=== PATIENT | female | born 1950 | race Caucasian/White ===

== ENCOUNTER 2022-03-04 11:04 | Day surgery (SDC) | payer MEDICARE, BC, SELFPAY ==
[2022-03-04 11:25] VITALS: BP 132/69; PULSE 73; RESP 16; TEMP 36.7; O2SAT 98
[2022-03-04] MEDS: Tropicam./Phenyleph. (1/2.5%) 5 ML BTL OD ×3 (11:36→11:46)
--- NOTE | 2022-03-04 11:42 | ANES.PREOP_ITS ---
General Info Date of Service Date Performed: 03/04/22 Height: 5 ft 1 in Weight: 58 kg Body Mass Index (BMI): 24.1 Surgical Procedure: Operation Date: 03/04/22 12:55 Proposed Procedure Side Surgeon p Cataract Extraction with IOL Implant Right Rc Hayes MD Meds Allergies and Home Medications Allergies Allergy/AdvReac Type Severity Reaction Status Date / Time albuterol [From DuoNeb] AdvReac Severe throat Verified 03/04/22 11:21 irritations severe coughing spells ipratropium [From DuoNeb] AdvReac Severe throat Verified 03/04/22 11:21 irritations severe coughing spells hydromorphone HCl AdvReac Intermediate Itching, Verified 03/04/22 11:21 [From Dilaudid] visual disturbances morphine AdvReac Intermediate Itching, Verified 03/04/22 11:21 visual disturbances Home Medication Medication Instructions Recorded Tums E-X 750 mg PO DAILY 09/18/16 acetaminophen 325 mg tablet 325 mg PO PRN PRN 09/18/16 (Tylenol) amlodipine 10 mg tablet 5 mg PO DAILY 09/18/16 aspirin 81 mg tablet,delayed 81 mg PO DAILY 09/18/16 release (Aspir-) docusate sodium 100 mg capsule 100 mg PO PRN PRN 09/18/16 (Colace) hydrochlorothiazide 25 mg tablet 25 mg PO DAILY 09/18/16 polyethylene glycol 3350 17 gram 17 gm PO PRN PRN 09/18/16 oral powder packet (Purelax) calcium carbonate 300 mg (750 mg) 2 tab PO DAILY 03/01/22 chewable tablet (Tums) diazepam 2 mg tablet 2 mg PO DAILY 03/01/22 melatonin 3 mg tablet 3 mg PO HS PRN 03/01/22 rituximab 10 mg/mL 100 mg IV DIRECTED 03/01/22 concentrate,intravenous (Rituxan) Current Visit Medications: Current Medications Generic Name Dose Route Start Last Admin Trade Name Freq PRN Reason Stop Dose Admin Acetaminophen 1,000 mg 03/04/22 06:00 Acetaminophen 500 Mg Tab PO Q4H PRN PRN Miscellaneous Medication 0 ml 03/04/22 06:00 Prednisolone 1%, Moxifloxacin 0.5%, Nepafenac 0.1% 5ml Btl OD DIRECTED WAYLON Miscellaneous Medication 0 ml 03/04/22 06:00 03/04/22 11:41 Tropicam./Phenyleph. (1/2.5%) 5 Ml Btl OD 1 drp DIRECTED WAYLON Administration Tetracaine HCl 0 ml 03/04/22 06:00 Tetracaine 0.5% 4 Ml Btl OD DIRECTED WAYLON PFSH Active Problems Active Problems: Problem Status Onset Code Nuclear sclerotic cataract of right eye H25.11 Medical History Medical History (Updated 03/03/22 @ 11:46 by Rc Hayes MD) Adjustment disorder with anxious mood Bunion COPD (chronic obstructive pulmonary disease) Costochondritis Dysuria Heart murmur HLD (hyperlipidemia) Hypertensive disorder Insomnia Mantoux: positive Nicotine dependence Osteoporosis Rheumatoid arthritis Senile hyperkeratosis Squamous cell carcinoma Ventral incisional hernia without obstruction or gangrene Surgical History Surgical History (Updated 03/04/22 @ 11:20 by Nacho Stroud) H/O hernia repair History of breast biopsy History of colostomy reversal History of exploratory laparotomy Hx laparoscopic cholecystectomy Hx of appendectomy Hx of colectomy Hx of colostomy Hx of tubal ligation Tobacco Smoking/Tobacco Use Status: Current every day Tobacco Type: cigarettes Alcohol Alcohol Intake: current Alcohol intake frequency: a few times a week Substance Use Substance use: Never Substance use type: does not use Vital Signs and Lab Results Vital Signs Most Recent Vital Signs in EMR: Most Recent Vital Signs Temp Pulse Resp BP Pulse Ox 36.7 C 73 16 132/69 98 03/04/22 11:25 03/04/22 11:25 03/04/22 11:25 03/04/22 11:25 03/04/22 11:25 Lab Results Blood Type / Crossmatch: No Data to Display Complete Blood Count: No Data to Display Complete Metabolic Panel: No Data to Display Liver Function Panel: No Data to Display Coagulation Panel: 2 No Data to Display Cardiac Panel: No Data to Display Arterial Blood Gas: No Data to Display Venous Blood Gas: No Data to Display Pancreas Panel: No Data to Display Thyroid Panel: No Data to Display Infectious Disease: No Data to Display Blood Cultures: No Data to Display Toxicology Panel: No Data to Display Anesthesia Assessment and Plan Anesthesia History Personal History: PONV Family History: No Family History of Anesthesia Complications Exercise Tolerance Exercise Tolerance: Metabolic Equivalents>4 Pertinent Negatives Pertinent Negatives: No Symptoms of GERD, No Major Cardiovascular Symptoms or Complaints and No Major Pulmonary Symptoms or Complaints Cardiac & Pulmonary Exam Cardiac Exam: Heart Murmur Present Pulmonary Exam: Clear Bilateral Breath Sounds Implantable Cardiac Device Does patient have a Pacemaker or an ICD?: No Airway Exam Known Difficult Airway: No Mallampati Class: 2 Mouth Opening: Normal (> 3cm) Thyromental Distance: Greater than 3 cm Neck Range of Motion: Full ROM Neck Circumference: Normal Teeth Condition: Normal Dentition ASA Classification ASA Score: ASA 2 Emergency Case?: No NPO Status NPO Status: NPO Clears >2 hours, Solids >8 hours Anesthesia Plan Resuscitation Status: Full Code Anesthesia Technique: MAC Anesthesia Airway Planned: Natural Airway Monitors Used: Standard Monitors
[2022-03-04 12:15] VITALS: BMI 24.1
[2022-03-04] MEDS: Tetracaine 0.5% 4 ML BTL (12:26)
[2022-03-04] MEDS: Balanced Salt Soln.-PLUS 500 ML BAG (12:27)
[2022-03-04] MEDS: Lidocaine 2% Jelly 6 ML SYR (12:28)
[2022-03-04] MEDS: Duovisc Viscoelastic System EACH 1 EACH (12:28)
[2022-03-04] MEDS: Povidone-Iodine Ophth 30 ML BTL (12:29)
[2022-03-04 12:45] VITALS: BP 124/112; PULSE 69; RESP 16; TEMP 36.6; O2SAT 97
--- NOTE | 2022-03-04 12:47 | W.PM.DSUDISC ---
Discharge Plan Disposition Patient Disposition: HOME Condition: Good Discharge Details Attending Provider: Rc Hyaes Primary Care Provider: Gonzalez Hernandez Robinson Meds and New Rx's Prescriptions: No Action acetaminophen [Tylenol] 325 MG tablet 325 mg PO PRN PRN0RF polyethylene glycol 3350 [Purelax] 17 GM powder in packet 17 gm PO PRN PRN0RF aspirin [Aspir-81] 81 MG tablet,delayed release (DR/EC) 81 mg PO DAILY 0RF amlodipine 10 MG tablet 5 mg PO DAILY 0RF docusate sodium [Colace] 100 MG capsule 100 mg PO PRN PRN0RF hydrochlorothiazide 25 MG tablet 25 mg PO DAILY 0RF Tums E-X 750 mg PO DAILY 0RF calcium carbonate [Tums] 300 mg (750 mg) Tablet,Chewable 2 tab PO DAILY 0RF melatonin 3 mg Tablet 3 mg PO HS PRN0RF diazepam 2 mg tablet 2 mg PO DAILY 0RF Label Comments: TAKE 1 TABLET BY MOUTH ONCE DAILY NEEDED Rituxan 10 mg/mL Concentrate 100 mg IV DIRECTED 0RF Discharge Instructions Stand Alone Forms: Post-op Block Cataract, Post-op Topical Cataract, Press Ganey (DSU) Discharge Orders Discharge Orders: Discharge Order (Routine); Ordered 03/04/22 Ordered By: Rc Hayes DS: Diagnosis Discharge Diagnosis (1) Nuclear sclerotic cataract of right eye: Status: Resolved
--- NOTE | 2022-03-04 12:48 | ROE_ITS ---
Date of service: 03/04/22 Time of Service: 12:48 Operative Note Operative Note DATE OF PROCEDURE: 03/04/22 PRE-OP DIAGNOSIS: Nuclear cataract, right POST-OP DIAGNOSIS: same PROCEDURE: Cataract extraction using phacoemulsification with intraocular lens implant, right eye SURGEON: Rc Hayes ANESTHESIA TYPE: Local By Surgeon and MAC Refer to Anesthesia Record ESTIMATED BLOOD LOSS: 0 PATHOLOGY: none sent COMPLICATIONS: None Patient was transported to: same day Patient's condition: stable Implants: Caleb & Caleb/SNEHAL Tecnis [id number] Indications: Progressive visual loss due to cataract, right eye Procedure Description: CATARACT SURGERY OPERATIVE REPORT PREOPERATIVE DIAGNOSIS: 1. Nuclear cataract, right eye POSTOPERATIVE DIAGNOSIS: Same OPERATION: 1. Cataract extraction using phacoemulsification with posterior chamber intraocular lens implant, right eye. IOL: IOL [employer]/Model: Caleb & Caleb / SNEHAL Tecnis [id number] IOL Power: + 20.5 diopters IOL Serial Number: [id number] Optic Diameter: 6.0mm Haptic/Overall Diameter: 13.0mm PHACO INFO: [place] Vision System with OZil and Active Fluidics Cumulative Dispersed Energy (CDE): 16.14 seconds SURGEON: Rc Hayes MD, JACQUE ANESTHESIA: Monitored Anesthesia Care (MAC), with local sub-tenon's anesthetic infiltration COMPLICATIONS: None SPECIMENS: None INDICATIONS FOR PROCEDURE: The patient is a 71-year-old lady with history of diminished visual acuity in her right eye secondary to the development of nuclear cataract. She is significantly symptomatic that she desires cataract surgery and attempt to improve and maximize her vision. The option of cataract surgery was offered to the patient and she wished to proceed PROCEDURE: The correct surgical eye was identified and marked as the right eye and the pupil was dilated in the preoperative area using mydriatics and cycloplegics. The dilated pupil size was 6.5 mm. The patient was brought to the operating room where cardiopulmonary monitoring was instituted and surgical time-out was performed, confirming the correct operative eye and IOL power. Topical anesthesia was administered and ophthalmic povidone-iodine 5% was instilled into the conjunctival fornices. Lidocaine gel was applied to the cornea and the aiyana-ocular area was prepped with Betadine 10% solution and draped in the usual sterile fashion for intraocular surgery, including an aperture drape. A Tegaderm transparent film dressing was cut in half and used to cover the lashes and lid margins. Care was taken to sequester the lashes and lid margins under the Tegaderm dressing. A lid speculum was placed between the lids of the operative eye and the [place] [employer] operating microscope was maneuvered into position. Myke scissors were then used to make a conjunctival buttonhole approximately 6mm posterior to the limbus in the inferonasal quadrant. Blunt dissection was carried out to expose bare sclera, and a blunt-tipped sub-tenon?s anesthesia cannula was introduced and passed posteriorly along the globe where non- preserved plain lidocaine was injected into posterior sub-Tenon?s space. A sideport knife was used to make a paracentesis port inferotemporally. Intraocular phenylephrine/lidocaine was injected into the anterior chamber. The anterior chamber was filled with viscoelastic. A 2.4mm keratome knife was used to create a half-thickness groove at the limbus and then to construct a three- plane near-clear corneal tunnel extending 2.0mm into clear cornea superiortemporally. A flap was raised on the anterior capsule and capsulorhexis forceps were used to complete a continuous curvilinear capsulorhexis of 5.0 mm. Balanced salt solution was then used to perform cortical cleaving hydrodissection and nuclear hydrodelineation until the lens could be freely rotated within the capsular bag. The lens nucleus was then disassembled and removed within the capsular bag and iris plane using phacoemulsification. Residual cortical material was removed using the I/A handpiece. The posterior capsule was carefully polished to remove as much residual lens epithelial cells as safely possible. The capsular bag was then inflated and the anterior chamber deepened with viscoelastic. The lens implant described above was inserted into the capsular bag using the SNEHAL [place] Injector. A Kuglen hook was used to dial the IOL into position. Residual viscoelastic was then removed first from posterior to the IOL, then from the anterior chamber using the I/A handpiece. The lens implant was noted to center nicely within the capsular bag. The incisions were stromally hydrated, and the anterior chamber was reformed using BSS. Then 0.5cc of moxifloxacin 1.0mg/ml were injected into the capsular bag and anterior chamber. The incisions were checked with a Weck spear and found to be secure. Several drops of ophthalmic povidone-iodine 5% were then applied to the eye followed by two drops of Imprimis combination prednisolone/moxifloxacin/nepafenac solution. The drapes were removed and a clear plastic protective eye shield was placed over the eye. The patient was then returned to Same Day Surgery in stable condition.
--- NOTE | 2022-03-04 13:09 | W.ANESPOSTOP ---
Postoperative Evaluation Date, Time and Location Date Performed: 03/04/22 Time Performed: 12:55 Patient Location: Day Surgery Unit Vital Signs Most Recent Imported Vital Signs: Most Recent Vital Signs Temp Pulse Resp BP Pulse Ox 36.6 C 69 16 124/112 H 97 03/04/22 12:45 03/04/22 12:45 03/04/22 12:45 03/04/22 12:45 03/04/22 12:45 Pain Score Most Recent Pain Score: Most Recent Pain Score Pain Level 0 03/04/22 12:45 Assessment Mental Status: Awake (Alert & Oriented to Patient Baseline) Airway and Respiratory Function: Patent airway with normal (patient baseline) respiratory exam Cardiovascular Function: Hemodynamically Stable Hydration Status: Adequately Hydrated Nausea & Vomiting: No Nausea or Vomiting Pain: Pt. Denies Any Pain Peripheral Nerve Block: Patient did not receive a nerve block
== END 2022-03-04 13:16 | disposition home or self-care (01) ==
PROVIDERS: PCP Family Medicine; Visit Provider Ophthalmology
PROC: (CPT 66984; principal; 2022-03-04 12:45)
DX: H25.11 Age-related nuclear cataract, right eye (principal); E78.5 Hyperlipidemia, unspecified; J44.9 Chronic obstructive pulmonary disease, unspecified; F17.210 Nicotine dependence, cigarettes, uncomplicated
CPT/HCPCS: 66984; V2632

== ENCOUNTER 2022-03-18 11:13 | Day surgery (SDC) | payer MEDICARE, BC, SELFPAY ==
[2022-03-18 11:35] VITALS: BP 130/88; PULSE 71; RESP 16; TEMP 36.5; O2SAT 98
[2022-03-18] MEDS: Tropicam./Phenyleph. (1/2.5%) 5 ML BTL OS ×3 (11:48→11:59)
--- NOTE | 2022-03-18 12:01 | W.ANESPRE ---
General Info Date of Service Date Performed: 03/18/22 Height: 5 ft 1 in Weight: 58 kg Body Mass Index (BMI): 24.1 Surgical Procedure: Operation Date: 03/18/22 12:55 Proposed Procedure Side Surgeon p Cataract Extraction with IOL Implant Left Rc Hayes MD Meds Allergies and Home Medications Allergies Allergy/AdvReac Type Severity Reaction Status Date / Time albuterol [From DuoNeb] AdvReac Severe throat Verified 03/18/22 11:32 irritations severe coughing spells ipratropium [From DuoNeb] AdvReac Severe throat Verified 03/18/22 11:32 irritations severe coughing spells hydromorphone HCl AdvReac Intermediate Itching, Verified 03/18/22 11:32 [From Dilaudid] visual disturbances morphine AdvReac Intermediate Itching, Verified 03/18/22 11:32 visual disturbances Home Medication Medication Instructions Recorded Tums E-X 750 mg PO DAILY 09/18/16 acetaminophen 325 mg tablet 325 mg PO PRN PRN 09/18/16 (Tylenol) amlodipine 10 mg tablet 5 mg PO DAILY 09/18/16 aspirin 81 mg tablet,delayed 81 mg PO DAILY 09/18/16 release (Aspir-) docusate sodium 100 mg capsule 100 mg PO PRN PRN 09/18/16 (Colace) hydrochlorothiazide 25 mg tablet 25 mg PO DAILY 09/18/16 polyethylene glycol 3350 17 gram 17 gm PO PRN PRN 09/18/16 oral powder packet (Purelax) calcium carbonate 300 mg (750 mg) 2 tab PO DAILY 03/01/22 chewable tablet (Tums) diazepam 2 mg tablet 2 mg PO DAILY PRN 03/01/22 melatonin 3 mg tablet 3 mg PO HS PRN 03/01/22 rituximab 10 mg/mL 100 mg IV DIRECTED 03/01/22 concentrate,intravenous (Rituxan) Current Visit Medications: Current Medications Generic Name Dose Route Start Last Admin Trade Name Freq PRN Reason Stop Dose Admin Acetaminophen 1,000 mg 03/18/22 06:00 Acetaminophen 500 Mg Tab PO Q4H PRN PRN Miscellaneous Medication 0 ml 03/18/22 06:00 Prednisolone 1%, Moxifloxacin 0.5%, Nepafenac 0.1% 5ml Btl OS DIRECTED WAYLON Miscellaneous Medication 0 ml 03/18/22 06:00 03/18/22 11:59 Tropicam./Phenyleph. (1/2.5%) 5 Ml Btl OS 1 drp DIRECTED WAYLON Administration Tetracaine HCl 0 ml 03/18/22 06:00 Tetracaine 0.5% 4 Ml Btl OS DIRECTED WAYLON PFSH Active Problems Active Problems: Problem Status Onset Code Nuclear sclerotic cataract of right eye H25.11 Nuclear sclerotic cataract of left eye H25.12 Medical History Medical History Adjustment disorder with anxious mood Bunion COPD (chronic obstructive pulmonary disease) Costochondritis Dysuria Heart murmur HLD (hyperlipidemia) Hypertensive disorder Insomnia Mantoux: positive Nicotine dependence Osteoporosis Rheumatoid arthritis Senile hyperkeratosis Squamous cell carcinoma Ventral incisional hernia without obstruction or gangrene Surgical History Surgical History (Updated 03/18/22 @ 11:32 by Lexi Venegas) H/O hernia repair History of breast biopsy History of colostomy reversal History of exploratory laparotomy Hx laparoscopic cholecystectomy Hx of appendectomy Hx of cataract surgery Hx of colectomy Hx of colostomy Hx of tubal ligation Tobacco Smoking/Tobacco Use Status: Current every day Tobacco Type: cigarettes Alcohol Alcohol Intake: current Alcohol intake frequency: a few times a week Substance Use Substance use: Never Substance use type: does not use Vital Signs and Lab Results Vital Signs Most Recent Vital Signs in EMR: Most Recent Vital Signs Temp Pulse Resp BP Pulse Ox 36.5 C 71 16 130/88 98 03/18/22 11:35 03/18/22 11:35 03/18/22 11:35 03/18/22 11:35 03/18/22 11:35 Lab Results Blood Type / Crossmatch: No Data to Display Complete Blood Count: No Data to Display Complete Metabolic Panel: No Data to Display Liver Function Panel: No Data to Display Coagulation Panel: No Data to Display Cardiac Panel: No Data to Display Arterial Blood Gas: No Data to Display Venous Blood Gas: No Data to Display Pancreas Panel: No Data to Display Thyroid Panel: No Data to Display Infectious Disease: No Data to Display Blood Cultures: No Data to Display Toxicology Panel: No Data to Display Anesthesia Assessment and Plan Anesthesia History Personal History: PONV Family History: No Family History of Anesthesia Complications Exercise Tolerance Exercise Tolerance: Metabolic Equivalents>4 Pertinent Negatives Pertinent Negatives: No Symptoms of GERD, No Major Cardiovascular Symptoms or Complaints and No Major Pulmonary Symptoms or Complaints Cardiac & Pulmonary Exam Cardiac Exam: Normal S1/S2 Heart Sounds Pulmonary Exam: Clear Bilateral Breath Sounds Implantable Cardiac Device Does patient have a Pacemaker or an ICD?: No Airway Exam Known Difficult Airway: No Mallampati Class: 2 Mouth Opening: Normal (> 3cm) Thyromental Distance: Greater than 3 cm Neck Range of Motion: Full ROM Neck Circumference: Normal Teeth Condition: Normal Dentition ASA Classification ASA Score: ASA 2 Emergency Case?: No NPO Status NPO Status: NPO Clears >2 hours, Solids >8 hours Anesthesia Plan Resuscitation Status: Full Code Anesthesia Technique: MAC Anesthesia Airway Planned: Natural Airway Monitors Used: Standard Monitors
[2022-03-18 12:09] VITALS: BMI 24.1
[2022-03-18] MEDS: Tetracaine 0.5% 4 ML BTL OS (12:42)
[2022-03-18] MEDS: Balanced Salt Soln.-PLUS 500 ML BAG (12:43)
[2022-03-18] MEDS: Duovisc Viscoelastic System EACH 1 EACH (12:43)
[2022-03-18] MEDS: Lidocaine 2% Jelly 6 ML SYR (12:44)
[2022-03-18] MEDS: Povidone-Iodine Ophth 30 ML BTL (12:46)
[2022-03-18 13:00] VITALS: BP 132/62; PULSE 57; RESP 16; TEMP 36.2; O2SAT 97
--- NOTE | 2022-03-18 13:01 | W.PM.DSUDISC ---
Discharge Plan Disposition Patient Disposition: HOME Condition: Good Discharge Details Attending Provider: Rc Hayes Primary Care Provider: Gonzalez Hernandez Beckley Meds and New Rx's Prescriptions: No Action acetaminophen [Tylenol] 325 MG tablet 325 mg PO PRN PRN polyethylene glycol 3350 [Purelax] 17 GM powder in packet 17 gm PO PRN PRN aspirin [Aspir-81] 81 MG tablet,delayed release (DR/EC) 81 mg PO DAILY amlodipine 10 MG tablet 5 mg PO DAILY docusate sodium [Colace] 100 MG capsule 100 mg PO PRN PRN hydrochlorothiazide 25 MG tablet 25 mg PO DAILY Tums E-X 750 mg PO DAILY calcium carbonate [Tums] 300 mg (750 mg) Tablet,Chewable 2 tab PO DAILY melatonin 3 mg Tablet 3 mg PO HS PRN diazepam 2 mg tablet 2 mg PO DAILY PRN Label Comments: TAKE 1 TABLET BY MOUTH ONCE DAILY NEEDED Rituxan 10 mg/mL Concentrate 100 mg IV DIRECTED Label Comments: Pt states Q6mth, last mid February Discharge Instructions Stand Alone Forms: Post-op Topical Cataract, Asaf Romeo (DSU) Discharge Orders Discharge Orders: Discharge Order (Routine); Ordered 03/18/22 Ordered By: Rc Hayes DS: Diagnosis Discharge Diagnosis (1) Nuclear sclerotic cataract of left eye: Status: Resolved
--- NOTE | 2022-03-18 13:02 | ROE_ITS ---
Date of service: 03/18/22 Time of Service: 12:02 Operative Note Operative Note DATE OF PROCEDURE: 03/18/22 PRE-OP DIAGNOSIS: Nuclear cataract, left eye POST-OP DIAGNOSIS: same PROCEDURE: Cataract extraction using phacoemulsification with intraocular lens implant, left eye SURGEON: Rc Hayes ANESTHESIA TYPE: Local By Surgeon and MAC Refer to Anesthesia Record PATHOLOGY: none sent COMPLICATIONS: None Patient was transported to: same day Patient's condition: stable Implants: Caleb and Caleb / [employer] Tecnis [id number] Indications: Progressive decreased vision due to cataract, left eye Procedure Description: CATARACT SURGERY OPERATIVE REPORT PREOPERATIVE DIAGNOSIS: 1. Nuclear cataract, left eye POSTOPERATIVE DIAGNOSIS: Same OPERATION: 1. Cataract extraction using phacoemulsification with posterior chamber intraocular lens implant, left eye. IOL: IOL Branch Service Representative/Model: Caleb & Caleb / SNEHAL Tecnis [id number] IOL Power: + 20.5 diopters IOL Serial Number: [id number] Optic Diameter: 6.0 mm Haptic/Overall Diameter: 13.0 mm PHACO INFO: [place] [employer] Vision System with OZil and Active Fluidics Cumulative Dispersed Energy (CDE): 9.80 seconds SURGEON: Rc Hayes MD, JACQUE ANESTHESIA: Monitored A [facility] (MAC), with local sub-tenon's anesthetic infiltration COMPLICATIONS: None SPECIMENS: None INDICATIONS FOR PROCEDURE: The patient is a 71-year-old lady with history of diminished visual acuity in her left eye secondary to the development of nuclear cataract. She has already undergone cataract surgery in the PROCEDURE: The correct surgical eye was identified and marked as the left eye and the pupil was dilated in the preoperative area using mydriatics and cycloplegics. The dilated pupil size was 7.0 mm. She elected to proceed without oral sedation. The patient was brought to the operating room where cardiopulmonary monitoring was instituted and surgical time-out was performed, confirming the correct operative eye and IOL power. Topical anesthesia was administered and ophthalmic povidone-iodine 5% was instilled into the conjunctival fornices. Lidocaine gel was applied to the cornea and the aiyana-ocular area was prepped with Betadine 10% solution and draped in the usual sterile fashion for intraocular surgery, including an aperture drape. A Tegaderm transparent film dressing was cut in half and used to cover the lashes and lid margins. Care was taken to sequester the lashes and lid margins under the Tegaderm dressing. A lid speculum was placed between the lids of the operative eye and the [place] [employer] operating microscope was maneuvered into position. Myke scissors were then used to make a conjunctival buttonhole approximately 6mm posterior to the limbus in the inferonasal quadrant. Blunt dissection was carried out to expose bare sclera, and a blunt-tipped sub-tenon?s anesthesia cannula was introduced and passed posteriorly along the globe where non- preserved plain lidocaine was injected into posterior sub-Tenon?s space. A sideport knife was used to make a paracentesis port superiorly/superiortemporally. Intraocular phenylephrine/lidocaine was injected int the anterior chamber.. The anterior chamber was filled with viscoelastic. A 2.4mm keratome knife was used to construct a 2-plane near-clear corneal tunnel extending 2.0mm into clear cornea temporally. A flap was raised on the anterior capsule and capsulorhexis forceps were used to complete a continuous curvilinear capsulorhexis of 5.5 mm. Balanced salt solution was then used to perform cortical cleaving hydrodissection and nuclear hydrodelineation until the lens could be freely rotated within the capsular bag. The lens nucleus was then disassembled and removed within the capsular bag and iris plane using phacoemulsification. Residual cortical material was removed using the 45-degree angled silicone I/A tip with 0.3mm port. The posterior capsule was carefully polished to remove as much residual lens epithelial cells as safely possible. The capsular bag was then inflated and the anterior chamber deepened with viscoelastic. The lens implant described above was inserted into the capsular bag using the SNEHLA [place] Injector. A Kuglen hook was used to dial the IOL into position. Residual viscoelastic was then removed first from posterior to the IOL, then from the anterior chamber using the I/A handpiece. The lens implant was noted to center nicely within the capsular bag. The incisions were stromally hydrated, and the anterior chamber was reformed using BSS. Then 0.5cc of moxifloxacin 1.0mg/ml were injected into the capsular bag and anterior chamber. The incisions were checked with a Weck spear and found to be secure. Several drops of ophthalmic povidone-iodine 5% were then applied to the eye followed by two dr ops of Imprimis combination prednisolone/moxifloxacin/nepafenac solution. The drapes were removed and a clear plastic protective eye shield was placed over the eye. The patient was then returned to Same Day Surgery in stable condition.
--- NOTE | 2022-03-18 13:16 | W.ANESPOSTOP ---
Postoperative Evaluation Date, Time and Location Date Performed: 03/18/22 Time Performed: 13:00 Patient Location: Day Surgery Unit Vital Signs Most Recent Imported Vital Signs: Most Recent Vital Signs Temp Pulse Resp BP Pulse Ox 36.2 C L 57 L 16 132/62 97 03/18/22 13:00 03/18/22 13:00 03/18/22 13:00 03/18/22 13:00 03/18/22 13:00 Pain Score Most Recent Pain Score: Most Recent Pain Score Pain Level 0 03/18/22 13:00 Assessment Mental Status: Awake (Alert & Oriented to Patient Baseline) Airway and Respiratory Function: Patent airway with normal (patient baseline) respiratory exam Cardiovascular Function: Hemodynamically Stable Hydration Status: Adequately Hydrated Nausea & Vomiting: No Nausea or Vomiting Pain: Pt. Denies Any Pain Peripheral Nerve Block: Patient did not receive a nerve block
== END 2022-03-18 13:20 | disposition home or self-care (01) ==
PROVIDERS: PCP Family Medicine; Visit Provider Ophthalmology
PROC: (CPT 66984; principal; 2022-03-18 12:45)
DX: H25.12 Age-related nuclear cataract, left eye (principal); J44.9 Chronic obstructive pulmonary disease, unspecified; M10.9 Gout, unspecified; F17.210 Nicotine dependence, cigarettes, uncomplicated
CPT/HCPCS: 66984; V2632